=== PATIENT | male | born 1950 | race Hispanic/Latino ===

== ENCOUNTER 2020-04-29 11:43 | Emergency (ER) | payer MEDICARE, MEDICAID ==
[2020-04-30 08:14] LABS: SARS-CoV-2 MS2 Positive; SARS-CoV-2 N Gene Positive; SARS-CoV-2 by NAA DETECTED (NotDetected); SARS-CoV-2 orf1ab Positive
[2020-04-30 08:24] LABS: SARS-CoV-2 S Gene Negative
== END 2020-04-29 12:13 | disposition home or self-care (01) ==
LOC: ERS 11:43
DX: U07.1 COVID-19 (principal)
CPT/HCPCS: 99283; U0003; 87635

== ENCOUNTER 2022-07-30 17:03 | Emergency (ER) | payer OTHER, MEDICARE, MEDICAID | END 2022-07-30 18:00 | disposition home or self-care (01) | LOC: ERS 17:03 | DX: Z04.1 Encounter for examination and observation following transport accident (principal); V89.2XXA Person injured in unspecified motor-vehicle accident, traffic, initial encounter | CPT/HCPCS: 99283 ==